=== PATIENT | female | born 2000 | race African-American/Black ===

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

== ENCOUNTER 2019-02-20 11:26 | Day surgery (SDC) | payer OTHER ==
[2019-02-20 12:48] VITALS: BMI 29.7
--- NOTE | 2019-02-21 07:15 | SS ---
DATE OF ADMISSION: 02/20/2019 DATE OF DISCHARGE: 02/20/2019 PRIMARY OB: Dr. Farhat Tomlinson. CHIEF COMPLAINT: Abdominal pain. HISTORY OF PRESENT ILLNESS: The patient is a 18-year-old, G1, P0 female with an intrauterine of 37wks who has presented with abdominal pains that began early this morning. She reports that they have dissipated some and are about 10 minutes apart now with some of them being uncomfortable. The patient denies any vaginal bleeding or leakage of fluid. She denies any fever, fall, headache, chest pain, or shortness of breath. She denies nausea, vomiting, diarrhea, or constipation. She denies hip problems, knee problems, or muscle weakness. Denies any new rashes. Denies urinary urgency. PAST MEDICAL HISTORY: Negative. PAST SURGICAL HISTORY: Negative. ALLERGIES: NO KNOWN DRUG ALLERGIES. MEDICATIONS: vitamins and iron and Zofran as needed, last taken several weeks ago. SOCIAL HISTORY: Denies drug, alcohol, or tobacco use. OB LABS: Unavailable at time of dictation. REVIEW OF SYSTEMS: Per HPI. PHYSICAL EXAMINATION: VITAL SIGNS: Blood pressure 108/65, heart rate of 70, saturating 100% on room air, temperature 98.3, respiratory rate of 20. GENERAL: The patient appears to be in no acute distress. She is alert, oriented, cooperative, and pleasant to interact with. HEAD: Normocephalic, atraumatic. LUNGS: Clear to auscultation bilaterally. HEART: Has a regular rate and rhythm. ABDOMEN: Gravid, soft, nontender to palpation. EXTREMITIES: Nontender with minimal edema. : 1, 75, -1 station. heart tracing for abdominal pain in with NST, baseline is 130s with moderate long-term variability, positive accelerations, no decelerations. Tocometer showing contractions about every 7 to 10 minutes with some irritability in between. ASSESSMENT AND PLAN: The patient is a 18-year-old, G1, P0, with an intrauterine at 37wks who is here with latent labor. The patient has been given reassurance. She has a reactive nonstress test and reassuring status. The patient has been offered pain medication for discomfort, which she has declined , and the patient will be discharged to home with instructions to follow up with Dr. Tomlinson as scheduled and has been given term labor precautions. Job ID: [id number] [facility]
== END 2019-02-20 13:28 | disposition home health service (06) ==
LOC: L&D/OP 11:26
PROVIDERS: ATTEND Family Medicine
DX: O99.89 Other specified diseases and conditions complicating pregnancy, childbirth and the puerperium (principal); R10.9 Unspecified abdominal pain; Z3A.37 37 weeks gestation of pregnancy; Z79.899 Other long term (current) drug therapy
CPT/HCPCS: 99282

== ENCOUNTER 2019-02-23 14:49 | Day surgery (SDC) | payer OTHER ==
[2019-02-23 15:38] VITALS: BMI 30.2
[2019-02-23] MEDS ORDERED: Acetaminophen 500 MG TAB PO SCH (15:45)
[2019-02-23] MEDS ORDERED: Iron Sucrose Complex 500 MG in Sodium Chloride 0.9% 250 ML 250 ML IVPB SCH (15:45)
== END 2019-02-23 20:20 | disposition home or self-care (01) ==
LOC: L&D/OP 14:49
PROVIDERS: ATTEND Family Medicine
DX: O99.019 Anemia complicating pregnancy, unspecified trimester (principal); D64.9 Anemia, unspecified
CPT/HCPCS: 96361; 96365; 96366; 99282; J1756; J7050

== ENCOUNTER 2019-03-07 01:46 | Inpatient (IN) | payer OTHER ==
--- NOTE | 2019-03-08 15:33 | HP ---
HISTORY OF PRESENT ILLNESS: This is a 18-year-old black female, G1, P0, at 40 weeks gestation with an EDC of 03/07/2019, being admitted for early labor. The patient's course has been complicated only by anemia. She did receive an iron transfusion 2 weeks prior. Her latest hemoglobin came up to 10. She has been having regular contractions for the past several days. She was noted yesterday in the office to be 3 cm dilated, 80% posterior cervix. She continues to have frequent contractions. PAST MEDICAL HISTORY: Unremarkable. PAST SURGERIES: None. FAMILY HISTORY: Maternal aunt with breast cancer. SOCIAL HISTORY: She is single, graduated high school. Does not smoke. Does not drink. REVIEW OF SYSTEMS: As above. PHYSICAL EXAMINATION: VITAL SIGNS: Stable. Afebrile. HEENT: Clear. HEART AND LUNGS: Clear. ABDOMEN: Soft, gravid. Cervix 3, 80 to 90. Posterior cervix +1, vertex. EXTREMITIES: With no edema. LABORATORY DATA: H and H 10 and 31. Iron 107, ferritin 309, GBS negative. HIV negative. TSH normal. Hepatitis B negative. RPR negative. Urine culture negative. Rubella immune, A positive blood type. History of chlamydia treated, history of BV treated. ASSESSMENT: 1. Early labor at term 40 weeks gestation. 2. History of anemia, treated with iron infusion. PLAN: 1. Routine L and D orders. 2. Pitocin augmentation. 3. Anesthesia for epidural. Job ID: [id number]
[2019-03-09] MEDS: Lactated Ringer's 1,000 ML IV SCH (12:40)
[2019-03-09] MEDS ORDERED: Ondansetron PF 4 MG/2 ML Vial IVP PRN ×3 (12:49→21:18)
[2019-03-09] MEDS ORDERED: Misoprostol 200 MCG TAB PR PRN (12:49)
[2019-03-09] MEDS ORDERED: Lidocaine 1% (PF) 30 ML VIAL SC PRN (12:49)
[2019-03-09] MEDS ORDERED: HYDROcodone/Acetaminophen 5/325 mg Tablet PO PRN ×2 (12:49→21:18)
[2019-03-09] MEDS ORDERED: Ibuprofen 800 MG TAB PO PRN (12:49)
[2019-03-09] MEDS ORDERED: Acetaminophen/Codeine 30-300mg Tablet PO PRN ×2 (12:49→21:18)
[2019-03-09] MEDS ORDERED: Butorphanol Tartrate 1 MG/ML VIAL SLOW IVP PRN (12:49)
[2019-03-09] MEDS ORDERED: NS / Oxytocin 40 units/1000ml 1,000 ML IV PRN (12:49)
[2019-03-09] MEDS ORDERED: Acetaminophen 500 MG TAB PO PRN (12:49)
[2019-03-09] MEDS ORDERED: NS w/ Oxytocin 10 units 500 ML IV SCH ×2 (12:49)
[2019-03-09] MEDS ORDERED: Promethazine HCl 25 MG/ML VIAL IM PRN ×2 (12:49→16:16)
[2019-03-09 13:09] LABS: Hemoglobin 9.7 g/dL (12.0-16.0); Mean Corpuscular HGB CONC 31.5 g/dL (32.0-36.0); Mean Corpuscular Hemoglobin 22.8 pg (25.0-35.0); Mean Corpuscular Volume 72.4 fL (78.0-98.0); Mean Platelet Volume 7.1 fL (7.4-10.4); Platelet Count 269 thou/uL (130-400); RBC Distribution Width 23.7 % (11.5-14.5); Red Blood Cell (RBC) Count 4.27 mill/uL (4.00-5.20); White Blood Cell (WBC) Count 8.8 thou/uL (4.8-10.8)
[2019-03-09 13:28] VITALS: BMI 30.4
[2019-03-09 13:40] LABS: Hep B Surf Ag Non-Reactive S/CO (NonReactive)
[2019-03-09 13:43] LABS: Syphilis Antibody Nonreactive (Nonreactive); Syphilis Antibody Index 0.04 S/CO (<1.00 Non-Reactive)
[2019-03-09] MEDS ORDERED: Fentanyl 4 mcg/Bup 0.1% Cadd 100 ML ONE (15:28)
[2019-03-09] MEDS ORDERED: Bupivacaine 0.5% 10 ML VIAL ONE (15:45)
[2019-03-09] MEDS ORDERED: Fentanyl 100 MCG/2 ML VIAL ONE (15:45)
[2019-03-09] MEDS ORDERED: Naloxone HCl 0.4 mg/ml Vial IVP PRN ×2 (16:16)
[2019-03-09] MEDS ORDERED: diphenhydrAMINE 50 MG/ML VIAL IVP PRN (16:16)
[2019-03-09] MEDS ORDERED: Eucerin (Mineral Oil/Petrolatum,White) 30 gm Jar TOP PRN (16:16)
[2019-03-09] MEDS ORDERED: Acetaminophen 325 MG TAB PO PRN (16:16)
[2019-03-09] MEDS ORDERED: Lactated Ringer's 500 ML IV PRN (16:16)
[2019-03-09] MEDS ORDERED: ePHEDrine/0.9% NaCl/PF SYRINGE 50 mg/10 ml SLOW IVP PRN (16:16)
[2019-03-09] MEDS ORDERED: Communication Order-Pharmacy FS SCH (16:30)
[2019-03-09] MEDS ORDERED: Fentanyl 4 mcg/Bupivacaine 0.1% Cassette 100 ML EPIDURAL SCH (16:30)
[2019-03-09] MEDS ORDERED: NS / Oxytocin 40 units/1000ml 1,000 ML ONE (20:47)
[2019-03-09] MEDS ORDERED: Methylergonovine 0.2 MG/ML VIAL IM PRN (21:18)
[2019-03-09] MEDS ORDERED: Lanolin Ointment 7 GM TUBE TOP PRN (21:18)
[2019-03-09] MEDS ORDERED: Benzocaine-Menthol 82.5 ML CAN TOP PRN (21:18)
[2019-03-09] MEDS ORDERED: Bisacodyl 10 MG SUPP PR PRN (21:18)
[2019-03-09] MEDS ORDERED: Docusate Calcium (SURFAK) 240 MG CAP PO SCH (21:30)
[2019-03-09] MEDS ORDERED: NS / Oxytocin 40 units/1000ml 1,000 ML IV SCH (21:30)
--- NOTE | 2019-03-09 22:07 | OP ---
DATE OF PROCEDURE: 03/09/2019 PREOPERATIVE DIAGNOSIS: Term at early labor. POSTOPERATIVE DIAGNOSIS: Term at early labor. PROCEDURE: Vacuum extraction with repair of fourth-degree midline episiotomy. DESCRIPTION OF PROCEDURE: This 18-year-old black female, G1, P0, taken to the delivery room for completing pushing. Prepped and draped sterilely. The baby was pushing nicely. The baby was and did well. The patient had major deceleration. Used a vacuum to deliver the baby from a vertex presentation smoothly with only one push in a very short pull. The baby with Apgars of 8 at 1 minute and 9 at 5 minutes. Baby did breathe and cry vigorously upon delivery. Cord was clamped and cut. Estimated blood loss was 350 mL. I repaired a fourth-degree with 4-0 Vicryl, 3-0 Vicryl, and 3-0 chromic. Minimal bleeding present. Job ID: [id number]
[2019-03-09] MEDS: Docusate Calcium (SURFAK) 240 MG CAP PO SCH (22:32)
[2019-03-10 07:37] LABS: Hemoglobin 7.9 g/dL (12.0-16.0); Mean Corpuscular HGB CONC 32.2 g/dL (32.0-36.0); Mean Corpuscular Hemoglobin 23.5 pg (25.0-35.0); Mean Corpuscular Volume 73.1 fL (78.0-98.0); Mean Platelet Volume 11.5 fL (7.4-10.4); Platelet Count 229 thou/uL (130-400); RBC Distribution Width 23.3 % (11.5-14.5); Red Blood Cell (RBC) Count 3.37 mill/uL (4.00-5.20); White Blood Cell (WBC) Count 14.7 thou/uL (4.8-10.8)
[2019-03-10] MEDS: Docusate Calcium (SURFAK) 240 MG CAP PO SCH ×2 (08:01→21:14)
[2019-03-10] MEDS: Ferrous Sulfate 325 MG TAB PO SCH ×2 (08:01→17:59)
[2019-03-10] MEDS: Prenatal Vitamin 1 TAB PO SCH (08:02)
[2019-03-10] MEDS: Milk Of Magnesia 30 ML UDCUP PO PRN (08:03)
[2019-03-10] MEDS: Lactated Ringer's 1,000 ML IV SCH (08:22)
[2019-03-10] MEDS ORDERED: Adacel (T-DAP) 0.5 ML SYRINGE IM ONE (09:00)
[2019-03-10] MEDS: Ibuprofen 800 MG TAB PO SCH (21:14)
[2019-03-11] MEDS: Ibuprofen 800 MG TAB PO SCH (05:00)
[2019-03-11] MEDS: Ferrous Sulfate 325 MG TAB PO SCH (08:07)
[2019-03-11] MEDS: Prenatal Vitamin 1 TAB PO SCH (08:07)
[2019-03-11] MEDS: Docusate Calcium (SURFAK) 240 MG CAP PO SCH (08:07)
[2019-03-11] MEDS: Milk Of Magnesia 30 ML UDCUP PO PRN (08:09)
[2019-03-11 08:41] VITALS: BP 99/56; TEMP 98.3
--- NOTE | 2019-03-11 10:28 | PDOC.PP ---
Post Progress Note Post Day #: 1 Subjective: Doing well. Minimal pain. Bleeding OK. PO intake tolerated: yes Flatus: yes Ambulation: yes Vital Signs (12 hours) Temp Pulse Resp BP Pulse Ox 03/11/19 08:00 98.3 F 76 18 99/56 L 99 Weight Weight 151 lb - Physical Examination General: NAD Cardiovascular: no m/r/g, RRR Respiratory: clear to auscultation bilaterally, non-labored breathing Abdominal: + bowel sounds, lochia, no distention, appropriately TTP Result Diagrams: 03/10/19 07:15 Additional Labs: Post Labs Blood Type A POSITIVE 03/09/19 12:51 Hep Bs Antigen Non-Reactive S/CO (NonReactive) 03/09/19 12:51 (1) Vaginal delivery Code(s): O80 - ENCOUNTER FOR FULL-TERM UNCOMPLICATED DELIVERY Status: Acute (2) Fourth degree laceration of perineum during delivery, Code(s): O70.3 - FOURTH DEGREE PERINEAL LACERATION DURING DELIVERY Status: Acute - Assessment/Plan Routine care D/c tomorrow Stool softener
--- NOTE | 2019-03-11 10:29 | PDOC.PP ---
Post Progress Note Post Day #: 2 Subjective: Doing well. Ambulating. No pain. PO intake tolerated: yes Flatus: yes Ambulation: yes Vital Signs (12 hours) Temp Pulse Resp BP Pulse Ox 03/11/19 08:00 98.3 F 76 18 99/56 L 99 Weight Weight 151 lb - Physical Examination General: NAD Cardiovascular: no m/r/g, RRR Respiratory: clear to auscultation bilaterally, non-labored breathing Abdominal: + bowel sounds, lochia, no distention, appropriately TTP Result Diagrams: 03/10/19 07:15 Additional Labs: Post Labs Blood Type A POSITIVE 03/09/19 12:51 Hep Bs Antigen Non-Reactive S/CO (NonReactive) 03/09/19 12:51 (1) Vaginal delivery Code(s): O80 - ENCOUNTER FOR FULL-TERM UNCOMPLICATED DELIVERY Status: Acute (2) Fourth degree laceration of perineum during delivery, Code(s): O70.3 - FOURTH DEGREE PERINEAL LACERATION DURING DELIVERY Status: Acute - Assessment/Plan D/C home F/U with Yessica Tomlinson Stool softener
== END 2019-03-11 12:35 | disposition home or self-care (01) | DRG 768 ==
LOC: EDSTATUS 15:01 → L&D 03-09 12:05 → 3SW 03-09 22:14
PROVIDERS: ADMIT Family Medicine; ATTEND Family Medicine
PROC: 10D07Z6 Extraction of Products of Conception, Vacuum, Via Natural or Artificial Opening (ICD-10-PCS; principal; 2019-03-09)
PROC: 0DQP0ZZ Repair Rectum, Open Approach (ICD-10-PCS; 2019-03-09)
DX: O99.02 Anemia complicating childbirth (principal); Z37.0 Single live birth; O70.3 Fourth degree perineal laceration during delivery; D64.9 Anemia, unspecified; Z3A.40 40 weeks gestation of pregnancy
CPT/HCPCS: 36415; 51702; 85027; 86780; 86850; 86900; 86901; 87340; 90715; J2001; J2405; J2590; J3010; J3490

== ENCOUNTER 2020-02-11 17:46 | Emergency (ER) | payer OTHER ==
[2020-02-11 19:12] LABS: #Eosinphils 0.1 thou/uL (0.0-0.7); #Lymphocytes 2.5 thou/uL (1.20-3.40); #Monocytes 0.7 thou/uL (0.11-0.59); #Neutrophils 4.9 thou/uL (1.40-6.50); %Basophils 0.2 % (0.0-1.0); %Eosinophils 1.2 % (0.0-10.0); %Lymphocytes 30.5 % (28.0-48.0); %Monocytes 8.3 % (0.0-4.0); %Neutrophils 59.8 % (31.0-61.0); Hemoglobin 8.9 g/dL (12.0-16.0); Mean Corpuscular HGB CONC 32.4 g/dL (32.0-36.0); Mean Corpuscular Hemoglobin 21.4 pg (25.0-35.0); Mean Corpuscular Volume 65.9 fL (78.0-98.0); Mean Platelet Volume 12.7 fL (7.4-10.4); Platelet Count 290 thou/uL (130-400); RBC Distribution Width 17.2 % (11.5-14.5); Red Blood Cell (RBC) Count 4.16 mill/uL (4.00-5.20); White Blood Cell (WBC) Count 8.1 thou/uL (4.8-10.8)
[2020-02-11 19:26] LABS: Bacteria/HPF None Seen HPF (None Seen); Bilirubin Negative (Negative); Blood, Urine Negative (Negative); Clarity Clear (Clear); Glucose, Urine (Dipstick) Normal (Negative); Leukocyte 75 Leu/uL (Negative); Nitrite Negative (Negative); Protein, Urine (Dipstick) 10 mg/dL (Neg-Trace); RBC/HPF 0-3 HPF (0-3); Squamous Epithelial 0-3 HPF (0-3); WBC/HPF 0-3 HPF (0-3)
[2020-02-11 19:31] LABS: ALT (SGPT) 7 U/L (8-55); AST (SGOT) 14 U/L (5-34); Albumin 3.3 g/dL (3.5-5.0); Alkaline Phosphatase 65 U/L (40-100); Anion Gap 10 mmol/L (10-20); BUN (Urea Nitrogen) 5 mg/dL (7.0-18.7); Bilirubin, Total 0.3 mg/dL (0.2-1.2); Calc. Creatinine Clearance 0 mL/min (70-130); Calcium 8.8 mg/dL (7.8-10.44); Carbon Dioxide 20 mmol/L (22-29); Chloride 109 mmol/L (98-107); Estimated GFR-MDRD Greater than 90; Globulin 3.5 g/dL (2.4-3.5); Glucose 74 mg/dL (70-105); Potassium 3.8 mmol/L (3.5-5.1); Protein, Total 6.8 g/dL (6.0-8.3); Sodium 135 mmol/L (136-145)
== END 2020-02-11 21:25 | disposition home or self-care (01) ==
LOC: ERS 17:46
DX: O26.52 Maternal hypotension syndrome, second trimester (principal); Z3A.20 20 weeks gestation of pregnancy
CPT/HCPCS: 36415; 80053; 81003; 81015; 85025; 99284

== ENCOUNTER 2020-02-15 14:39 | Outpatient (CLI) | payer OTHER ==
--- NOTE | 2020-02-15 16:12 | ULT ---
ULTRASOUND OBSTETRICAL COMPLETE: 02/15/20 HISTORY: 19-year-old female. Evaluate anatomy. FINDINGS: number: Parker. lie: Cephalic. Maternal cervix: 2.5 cm and closed. Placenta: Posterior. No placenta previa. Amniotic fluid volume: REANNA 16 cm. heart rate: 142 bpm The following anatomy is visualized, with no evidence of anomalies: Head, lateral ventricles, cerebellum, nose and lips, spine, upper limbs, lower limbs, four chamber he art, umbilical cord, cord insertion, stomach, kidneys, and bladder. biometry: Head circumference (HC): 21.0 cm 23w 1d Biparietal diameter (BPD): 5.7 cm 23w 4d Abdominal circumference (AC): 17.4 cm 22w 3d Femur length (FL): 4.0 cm 23w 0d Average ultrasound age (AUA): 23w 1d Estimated date of delivery (NILA): 06/12/2020 Last menstrual period (LMP): 09/03/2019 Gestational age by LMP: 23w 4d Estimated weight (EFW): 526 g +/- 77 g (1 lb. 3 oz. +/- 3 oz.). IMPRESSION: 1. Live second trimester intrauterine gestation. 2. Estimated gestational age of 23 weeks, 1 day. 3. Cephalic lie. 4. No anatomical abnormalities. jn [] POS: JIN
== END 2020-02-15 14:40 | disposition home or self-care (01) ==
LOC: BICULT 14:39
PROVIDERS: ATTEND Family Medicine
DX: Z34.82 Encounter for supervision of other normal pregnancy, second trimester (principal); Z3A.23 23 weeks gestation of pregnancy
CPT/HCPCS: 76805

== ENCOUNTER 2020-05-29 08:51 | Inpatient (IN) | payer OTHER ==
[2020-05-29 09:32] VITALS: BMI 26.6
[2020-05-29] MEDS: Lactated Ringer's 1,000 ML IV SCH ×3 (09:51→17:24)
[2020-05-29] MEDS ORDERED: Diphenoxylate HCl/Atropine Tablet PO PRN (10:11)
[2020-05-29] MEDS ORDERED: HYDROcodone/Acetaminophen 5/325 mg Tablet PO PRN ×3 (10:11→18:52)
[2020-05-29] MEDS ORDERED: Promethazine HCl 25 MG/ML VIAL IM PRN ×2 (10:11→12:46)
[2020-05-29] MEDS ORDERED: Lidocaine 1% (PF) 30 ML VIAL SC PRN (10:11)
[2020-05-29] MEDS ORDERED: Methylergonovine 0.2 MG/ML VIAL IM PRN (10:11)
[2020-05-29] MEDS ORDERED: hydrALAZINE 20 MG/ML VIAL SLOW IVP PRN ×2 (10:11→18:52)
[2020-05-29] MEDS ORDERED: Butorphanol Tartrate 1 MG/ML VIAL SLOW IVP PRN (10:11)
[2020-05-29] MEDS ORDERED: Carboprost 250 MCG/ML AMP IM PRN (10:11)
[2020-05-29] MEDS ORDERED: Misoprostol 200 MCG TAB PR PRN (10:11)
[2020-05-29] MEDS ORDERED: Ibuprofen 800 MG TAB PO PRN (10:11)
[2020-05-29] MEDS ORDERED: Ondansetron PF 4 MG/2 ML Vial IVP PRN ×3 (10:11→18:52)
[2020-05-29] MEDS ORDERED: NS w/ Oxytocin 10 units 500 ML IV SCH ×2 (10:15)
[2020-05-29] MEDS ORDERED: Bupivacaine/Epinephrine 0.25% 30 ML VIAL ONE (10:17)
[2020-05-29 10:41] LABS: Hemoglobin 8.3 g/dL (12.0-16.0); Mean Corpuscular HGB CONC 29.7 g/dL (32.0-36.0); Mean Corpuscular Hemoglobin 18.3 pg (27.0-31.0); Mean Corpuscular Volume 61.7 fL (78.0-98.0); Mean Platelet Volume 7.7 fL (7.4-10.4); Platelet Count 330 thou/uL (130-400); RBC Distribution Width 19.8 % (11.5-14.5); Red Blood Cell (RBC) Count 4.54 mill/uL (4.20-5.40); White Blood Cell (WBC) Count 10.1 thou/uL (4.8-10.8)
[2020-05-29] MEDS ORDERED: Fentanyl 4 mcg/Bup 0.1% Cadd 100 ML ONE (10:44)
[2020-05-29 11:12] LABS: HBSAg Index 0.15 S/CO (0-0.99); Hep B Surf Ag Non-Reactive S/CO (NonReactive); Syphilis Antibody Nonreactive (Nonreactive); Syphilis Antibody Index 0.04 S/CO (<1.00 Non-Reactive)
[2020-05-29] MEDS ORDERED: Naloxone HCl 0.4 mg/ml Vial IVP PRN ×2 (12:46)
[2020-05-29] MEDS ORDERED: Lactated Ringer's 500 ML IV PRN (12:46)
[2020-05-29] MEDS ORDERED: diphenhydrAMINE 50 MG/ML VIAL IVP PRN (12:46)
[2020-05-29] MEDS ORDERED: Acetaminophen 325 MG TAB PO PRN (12:46)
[2020-05-29] MEDS ORDERED: EPHEDRINE 25 MG/5 ML SYRINGE SLOW IVP PRN (12:46)
[2020-05-29] MEDS ORDERED: Fentanyl 4 mcg/Bupivacaine 0.1% Cassette 100 ML EPIDURAL SCH (13:00)
[2020-05-29] MEDS ORDERED: Communication Order-Pharmacy FS SCH (13:00)
[2020-05-29] MEDS ORDERED: Lidocaine 1% (PF) 30 ML VIAL ONE (13:58)
[2020-05-29] MEDS ORDERED: NS / Oxytocin 40 units/1000ml 1,000 ML ONE (13:58)
[2020-05-29] MEDS: NS / Oxytocin 40 units/1000ml 1,000 ML IV PRN ×2 (14:33→16:15)
[2020-05-29] MEDS ORDERED: Azithromycin 500 MG VIAL ONE ×2 (14:44)
[2020-05-29] MEDS ORDERED: Tranexamic Acid 1,000 MG/10 ML VIAL ONE ×2 (14:45→15:18)
[2020-05-29] MEDS ORDERED: metroNIDAZOLE 500 MG in Premix Bag 1 BAG IVPB SCH (15:00)
[2020-05-29] MEDS ORDERED: NS / Oxytocin 40 units/1000ml 1,000 ML IV SCH (18:52)
[2020-05-29] MEDS ORDERED: Bisacodyl 10 MG SUPP PR PRN (18:52)
[2020-05-29] MEDS ORDERED: diphenhydrAMINE 25 MG CAP PO PRN (18:52)
[2020-05-29] MEDS ORDERED: Adacel (T-DAP) 0.5 ML SYRINGE IM ONE (18:52)
[2020-05-29] MEDS ORDERED: Benzocaine-Menthol 82.5 ML CAN TOP PRN (18:52)
[2020-05-29] MEDS ORDERED: Milk Of Magnesia 30 ML UDCUP PO PRN (18:52)
[2020-05-29] MEDS ORDERED: Preparation H Ointment 28 GM TUBE PR PRN (18:52)
[2020-05-29] MEDS: Ibuprofen 800 MG TAB PO SCH (21:57)
[2020-05-29] MEDS: Docusate Calcium (SURFAK) 240 MG CAP PO SCH (21:57)
[2020-05-29] MEDS: Ferrous Sulfate 325 MG TAB PO SCH (22:23)
[2020-05-30] MEDS: Ferrous Sulfate 325 MG TAB PO SCH ×3 (00:02→15:31)
[2020-05-30 05:56] LABS: Hemoglobin 6.3 g/dL (12.0-16.0); Mean Corpuscular HGB CONC 29.4 g/dL (32.0-36.0); Mean Corpuscular Hemoglobin 18.4 pg (27.0-31.0); Mean Corpuscular Volume 62.6 fL (78.0-98.0); Mean Platelet Volume 7.1 fL (7.4-10.4); Platelet Count 249 thou/uL (130-400); RBC Distribution Width 19.7 % (11.5-14.5); Red Blood Cell (RBC) Count 3.42 mill/uL (4.20-5.40); White Blood Cell (WBC) Count 16.8 thou/uL (4.8-10.8)
[2020-05-30] MEDS: Ibuprofen 800 MG TAB PO SCH ×2 (06:31→13:13)
[2020-05-30] MEDS: Docusate Calcium (SURFAK) 240 MG CAP PO SCH (08:04)
[2020-05-30] MEDS ORDERED: Prenatal Vitamin 1 TAB PO SCH (09:00)
[2020-05-30 11:50] VITALS: BP 110/69; TEMP 98
[2020-05-30 12:10] LABS: SARS-CoV-2 MS2 Positive; SARS-CoV-2 N Gene Negative; SARS-CoV-2 S Gene Negative; SARS-CoV-2 by NAA Not Detected (NotDetected); SARS-CoV-2 orf1ab Negative
== END 2020-05-30 17:30 | disposition home or self-care (01) | DRG 806 ==
LOC: L&D 08:51 → 3SE 18:51
PROVIDERS: ADMIT Family Medicine; ATTEND Family Medicine
PROC: 10E0XZZ Delivery of Products of Conception, External Approach (ICD-10-PCS; principal; 2020-05-29)
PROC: 10907ZC Drainage of Amniotic Fluid, Therapeutic from Products of Conception, Via Natural or Artificial Opening (ICD-10-PCS; 2020-05-29)
DX: O69.81X0 Labor and delivery complicated by cord around neck, without compression, not applicable or unspecified (principal); O72.0 Third-stage hemorrhage; Z37.0 Single live birth; Z3A.38 38 weeks gestation of pregnancy; O90.89 Other complications of the puerperium, not elsewhere classified
CPT/HCPCS: 36415; 51702; 85027; 86780; 86850; 86900; 86901; 87340; 87635; J0456; J2001; J2405; J2590; U0003

== ENCOUNTER 2023-02-03 15:58 | Emergency (ER) | payer BC, OTHER ==
[2023-02-03 17:05] LABS: #Eosinphils 0.2 thou/uL (0.0-0.7); #Lymphocytes 3.6 thou/uL (1.20-3.40); #Monocytes 0.8 thou/uL (0.11-0.59); %Basophils 0.1 % (0.0-1.0); %Eosinophils 2.4 % (0.0-10.0); %Lymphocytes 37.2 % (21.0-51.0); %Monocytes 8.7 % (0.0-10.0); %Neutrophils 51.6 % (42.0-75.0); Hemoglobin 12.5 g/dL (12.0-16.0); Mean Corpuscular HGB CONC 32.9 g/dL (32.0-36.0); Mean Corpuscular Hemoglobin 24.2 pg (27.0-31.0); Mean Corpuscular Volume 73.5 fl (78.0-98.0); Mean Platelet Volume 10.5 fL (7.4-10.4); Platelet Count 314 10x3/uL (130-400); Red Blood Cell (RBC) Count 5.17 mill/uL (4.20-5.40); White Blood Cell (WBC) Count 9.8 10x3/uL (4.8-10.8)
[2023-02-03 17:07] LABS: BHCG - Serum Negative (NEGATIVE); Pregs Control Background? CLEAR/WHITE (CLR/WHITE); Pregs Control Bar Appear? YES (CONTROL BAR)
[2023-02-03 17:20] LABS: MDiff Complete? YES; Microcytosis SLIGHT = 6-15 cells (100X) (0-5/hpf); Platelet Morphology Comment Appears Adequate; Polychromasia SLIGHT = 2-3 cells (100X) (0-2/hpf); Target Cells SLIGHT = 2-5 cells (100X) (0-1/hpf)
[2023-02-03 17:22] LABS: ALT (SGPT) 17 U/L (8-55); AST (SGOT) 20 U/L (5-34); Albumin 4.2 g/dL (3.5-5.0); Alkaline Phosphatase 89 U/L (40-110); Anion Gap 12 mmol/L (10-20); BUN (Urea Nitrogen) 11 mg/dL (7.0-18.7); Bilirubin, Total Less than 0.2 mg/dL (0.2-1.2); Calc. Creatinine Clearance 0 mL/min (70-130); Calcium 9.5 mg/dL (7.8-10.44); Carbon Dioxide 22 mmol/L (22-29); Chloride 110 mmol/L (98-107); Estimated GFR 99; Globulin 3.6 g/dL (2.4-3.5); Glucose 94 mg/dL (70-105); Protein, Total 7.8 g/dL (6.0-8.3); Sodium 140 mmol/L (136-145)
[2023-02-03 18:23] LABS: Bacteria/HPF None Seen HPF (None Seen); Bilirubin Negative (Negative); Blood, Urine Trace (Negative); Clarity Clear (Clear); Glucose, Urine (Dipstick) Normal (Negative); Ketone, Urine Negative (Negative); Leukocyte Negative Leu/uL (Negative); Nitrite Negative (Negative); Protein, Urine (Dipstick) Negative (Neg-Trace); RBC/HPF 0-3 HPF (0-3); Specific Gravity, Urine 1.008 (1.002-1.036); Squamous Epithelial None Seen HPF (0-3); Urobilinogen Normal mg/dL (Less than 2); WBC/HPF 0-3 HPF (0-3)
== END 2023-02-03 18:55 | disposition home or self-care (01) ==
LOC: ERS 15:58
DX: N93.9 Abnormal uterine and vaginal bleeding, unspecified (principal)
CPT/HCPCS: 36415; 80053; 81003; 81015; 84703; 85025; 99284

== ENCOUNTER 2024-11-06 09:06 | Emergency (ER) | payer BC | END 2024-11-06 10:39 | disposition home or self-care (01) | LOC: ERS 09:06 | DX: R05.9 Cough, unspecified (principal) | CPT/HCPCS: 71046 ==